=== PATIENT | male | born 1945 | race Caucasian/White ===

== ENCOUNTER → 2020-08-23 | Outpatient (CLI) | payer MEDICARE, BC, OTHER ==
[~2020-08-23] MED LIST: ALEV220T22 PO; DUTA1CAP2 PO; FAMO40TA3 PO; FLOM0.4C39 PO; GNP1000T11 PO; HYDR12CA PO; LOSA25TA14 PO; PRAV20TA2 PO; VALI5TAB PO; VITA50005 PO
== END ==
LOC: M LABSMTC 13:25
PROVIDERS: ATTEND Anesthesiology
DX: Z01.812 Encounter for preprocedural laboratory examination (principal); Z20.828 Contact with and (suspected) exposure to other viral communicable diseases

== ENCOUNTER 2020-08-28 06:17 | Inpatient (IN) | payer MEDICARE, BC, OTHER ==
[~2020-08-28] VITALS: Ht 165.1 cm; Wt 81.1 kg
[2020-08-28] MEDS ORDERED: ceFAZolin 2 GM/D5W 50 ML IV BAG (J0690 PER 500MG) As Ordered ONE (06:53)
[2020-08-28] MEDS ORDERED: fentaNYL 100 MCG/2 ML INJECTION (J3010) IV PRN ×2 (07:01)
[2020-08-28] MEDS ORDERED: MIDAZOLAM INJ 2MG/2ML VIAL (J2250 PER 1MG) IV PRN ×2 (07:01)
[2020-08-28] MEDS ORDERED: HYDROmorphone HCL 2 MG/ML 1ML VIAL (J1170) As Ordered ONE (07:13)
[2020-08-28] MEDS ORDERED: fentaNYL 100 MCG/2 ML INJECTION (J3010) As Ordered ONE ×2 (07:13→07:19)
[2020-08-28] MEDS ORDERED: dexameTHASONE 4 MG/ML 1ML VIAL (J1100 PER 1MG) As Ordered ONE (07:14)
[2020-08-28] MEDS ORDERED: ROCURONIUM BROMIDE 50 MG/5 ML VIAL As Ordered ONE (07:14)
[2020-08-28] MEDS ORDERED: MIDAZOLAM INJ 2MG/2ML VIAL (J2250 PER 1MG) As Ordered ONE ×2 (07:14→07:19)
[2020-08-28] MEDS ORDERED: LIDOCAINE 2% 100MG/5ML SDV (FOR ANES.) As Ordered ONE (07:14)
[2020-08-28] MEDS ORDERED: ONDANSETRON 4MG/2ML VIAL As Ordered ONE (07:14)
[2020-08-28] MEDS ORDERED: propofoL 200 MG/20 ML VIAL As Ordered ONE (07:14)
[2020-08-28] MEDS ORDERED: dexameTHASONE 10MG/1ML VIAL PRES.FREE (J1100 PER 1MG) As Ordered ONE (07:19)
[2020-08-28] MEDS ORDERED: ROPIvacaine 0.5% 30ML INJECTION (J2795 PER 1MG) As Ordered ONE ×2 (07:19→07:20)
[2020-08-28] MEDS ORDERED: EPINEPHrine INJ 1 MG/ML 1ML AMP As Ordered ONE (07:20)
[2020-08-28] MEDS ORDERED: LIDOCAINE 1% MDV 20ML VIAL As Ordered ONE (07:20)
[2020-08-28] MEDS ORDERED: ROPIvacaine 0.5% 30ML INJECTION (J2795 PER 1MG) XX ONE ×2 (07:45→15:00)
[2020-08-28] MEDS ORDERED: dexameTHASONE 10MG/1ML VIAL PRES.FREE (J1100 PER 1MG) XX ONE ×2 (07:45→15:00)
[2020-08-28] MEDS ORDERED: LR 1,000 ML IV ONE (07:45)
[2020-08-28] MEDS ORDERED: ceFAZolin SOD 2 GM in IV 1 EA IV ONE (07:45)
[2020-08-28] MEDS ORDERED: EPINEPHrine INJ 1 MG/ML 1ML AMP XX ONE ×2 (07:45→15:00)
[2020-08-28] MEDS ORDERED: ACETAMINOPHEN 1000MG 100ML IV BTL (OFIRMEV) (J0131 PER 10MG) As Ordered ONE (08:11)
[2020-08-28] MEDS ORDERED: SUGAMMADEX SODIUM 500 MG/5 ML VIAL (BRIDION) As Ordered ONE (08:12)
[2020-08-28] MEDS ORDERED: ePHEDrine SULFATE 25 MG/5 ML(5MG/ML) SYRINGE As Ordered ONE (08:15)
[2020-08-28] MEDS ORDERED: PHENYLephrine HCL 500 MCG/5 ML (100MCG/ML) SYRINGE (J2370) As Ordered ONE (08:16)
--- NOTE | 2020-08-28 08:29 | ECGEPIP ---
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 Clincal correlation advised Electronically Signed on 08-28-2020 8:29:34 EST by Loki Christiansen
--- NOTE | 2020-08-28 11:41 | REP ---
INDICATION: RIGHT ANKLE FUSION. COMPARISON: None. TECHNIQUE: Intraoperative fluoroscopic imaging using portable C-arm technique FINDINGS: Images demonstrate the patient to be status post fixation/ankle fusion. Satisfactory alignment noted. Total fluoroscopic time 2 minutes 16 seconds. IMPRESSION: Status post right ankle fusion <Electronically signed by Emilio Grider > 08/28/20 [id number]
[2020-08-28] MEDS ORDERED: ONDANSETRON 4MG/2ML VIAL IV PRN (13:00)
[2020-08-28] MEDS ORDERED: MORPHINE 4 MG/ML 1ML VIAL/SYRINGE (J2270) IV PRN (13:00)
[2020-08-28] MEDS ORDERED: oxyCODONE 5MG TAB PO PRN ×2 (13:00)
[2020-08-28 14:16] VITALS: BP 130/65
[2020-08-28] MEDS: LR 1,000 ML IV SCH (14:18)
[2020-08-28 15:00] VITALS: BP 133/62
[2020-08-28] MEDS: ACETAMINOPHEN 500 MG TAB PO SCH (15:21)
[2020-08-28] MEDS: ceFAZolin SOD 2 GM in IV 1 EA IV SCH (15:21)
[2020-08-28] MEDS ORDERED: diazePAM 5MG TABLET PO PRN (15:30)
--- NOTE | 2020-08-28 15:38 | HPEPDOC ---
[facility] Medical History & Physical Date of Admission Aug 28, 2020 Date of Service: Aug 28, 2020 History and Physical Chief complaint: Presented to [facility] for elective orthopedic procedure History of present illness: Patient is a 74-year-old male who presented to [facility] for elective orthopedic procedure. He has received a right ankle fusion with orthopedic surgery. Hospitalist service was consulted for medical management. He was seen and examined post operatively. He notes that he has received medical clearance from his primary care provider Freddy Luis. Currently patient denies any headache, nausea, vomiting, chest pain, shortness breath, palpitations, abdominal pain, constipation, diarrhea, or urinary discomfort. He denies any recent fevers or chills. Reports that his appetite and weight have been relatively normal. Past Medical History: HTN DLP Anxiety BPH Vitamin D deficiency GERD Past Surgical History: Cataracts (2018) Tumor removed at nose Vasectomy (1973) Colonoscopy (2018) Allergies: See below Medications: See below Family History: - Reviewed on non-contributory Social History: - Denies the use of illicit drugs; patient reports very little alcohol use, has quit smoking 50 years ago but was a smoker of greater than 10 years - Denies recent travel or sick contacts - Lives with - Occupation; works at a [employer] contractor Review of Systems: 10 point review of systems complete, all negative otherwise stated in HPI Physical exam: - Vitals: BP [130/66], HR [78], RR [17], Sat [96%RA], Temp [98.4F] - General: Sitting up in bed, Speaking in full sentences, AAOx3 - HEENT: NC, AT, PERRLA - CVS: RRR, +S1S2 - Lungs: Fair air entry bilaterally, No appreciable wheezing / rales / rhonchi - Abdomen: Soft, Non-distended, Non-tender - Extremities: No lower extremity edema at Left leg, No calf tenderness, R foot / leg in dressing - Neuro: No focal motor or sensory deficit - Skin: No visible rashes Labs: See below Imaging: See below EKG: See below Assessment and Plan: Elective right ankle fusion (POD#0) - Patient presented to [facility] for elective orthopedic procedure - Has received outpatient medical clearance from his primary care provider, Dr. Freddy Luis - Pain control, anticoagulation and physical therapy at the direction of orthopedic surgery HTN - Blood pressure is well-controlled - c/w HCTZ and Losartan with holding parameters DLP - c/w Pravastatin BPH - c/w Dutasteride and Tamsulosin Anxiety - c/w Diazepam PRN Vitamin D deficiency - Will resume supplementation as an outpatient GERD / Hiatal Hernia - c/w Famotidine DVT prophylaxis - As per orthopedic surgery Vital Signs Vital Signs Date Time Temp Pulse Resp B/P (MAP) Pulse Ox O2 Delivery O2 Flow Rate FiO2 08/28/20 14:16 98.4 78 17 130/65 (86) 96 Room Air 08/28/20 12:40 3 Home Medications Scheduled Dutasteride (Dutasteride) 0.5 Mg Capsule, 0.5 MG PO DAILY Ergocalciferol (Vitamin D2) (Vitamin D2) 50,000 Units Cap, 50,000 UNITS PO Q2WK Famotidine (Famotidine) 40 Mg Tablet, 40 MG PO QHS Glucosamine Sulfate Dipot Chlr (Glucosamine) 1,000 Mg Tablet, 2 TAB PO DAILY with turmeric Hydrochlorothiazide (Hydrochlorothiazide) 12.5 Mg Capsule, 12.5 MG PO DAILY Losartan Potassium (Losartan Potassium) 25 Mg Tablet, 12.5 MG PO DAILY Naproxen Sodium (Aleve) 220 Mg Tablet, 220 MG PO DAILY Pravastatin Sodium (Pravastatin Sodium) 20 Mg Tablet, 20 MG PO QPM Tamsulosin HCl (Flomax) 0.4 Mg Capsule, 0.4 MG PO DAILY Scheduled PRN Diazepam (Valium) 5 Mg Tablet, 5 MG PO PRN PRN for ANXIETY/AGITATION Allergies Coded Allergies: No Known Allergies (Unverified , 08/28/20) LUDWIG DE LA GARZA MD Aug 28, 2020 15:38
[2020-08-28] MEDS ORDERED: PILL CUTTER 1 EACH XX PRN (15:45)
[2020-08-28 16:00] VITALS: BP 131/66
--- NOTE | 2020-08-28 16:22 | RO ---
OPERATIVE NOTE DATE OF OPERATION: 08/28/2020 PREOPERATIVE DIAGNOSIS: Right ankle osteoarthritis. POSTOPERATIVE DIAGNOSIS: Right ankle osteoarthritis. PROCEDURES: 1. Right ankle arthrodesis. 2. Right proximal tibia bone graft. SURGEON: Scarlett Shannon M.D. ROCKET MOTOR MECHANIC: FAITH Womack. ANESTHESIA: General endotracheal with popliteal nerve block. ESTIMATED BLOOD LOSS: 100 mL. COMPLICATIONS: None. CONDITION: Stable to recovery. INDICATIONS FOR PROCEDURE: Otto Yanes is a 74-year-old male with longstanding pain from tibiotalar joint arthritis. He has failed conservative measures. Risks and benefits of surgery were discussed with him in detail and include, but are not limited to infection, damage to arteries and blood vessels, continued pain and stiffness, and the need for additional procedures. Informed consent was obtained in the office. DESCRIPTION OF PROCEDURE: The patient was met in the preoperative holding area where the right lower extremity was marked as the correct operative side. He was taken to the operating room and placed in the supine position on the operating room table. Bony prominences were well-padded. A Davis catheter was placed and taken out at the end of the case. He was given antibiotics within 60 minutes prior to incision. The right lower extremity was prepped and draped in the normal sterile fashion after a well-padded tourniquet was applied. An official time-out was held where the correct patient, operative side, and operative procedure were verified. An incision was made over the anterior aspect of the ankle. The superficial peroneal nerve was retracted. The retinaculum was incised. The EHL was retracted laterally and the tibialis anterior was retracted medially. The neurovascular bundle was identified and teased laterally with careful blunt dissection. Any crossing vessels were coagulated. The ankle joint was approach and capsule was incised. There was significant arthritis throughout the tibiotalar joint with very little remaining cartilage on the lateral aspect of the joint. There was bone loss of the tibial plafond medially. Copious irrigation was performed. I then carefully prepared the joint using a series of curettes, lambotte osteotomes, and all cartilage was removed. I had gained access to the joint with a lamina frontload driver. I then drilled the joint using a 2-0 drill. This was further fishtailed using a lambotte osteotome. There was good preparation of the joint. At this point, attention was turned to the lateral aspect of the leg. Gerdy's tubercle was identified using x-ray. I made an incision over Gerdy's tubercle and incised the anterior compartment. A small window was removed form the lateral tibial at the region of Gerdy's tubercle and I obtained bone graft from this region. At the end of the case, this area was irrigated and the anterior compartment was closed with 0-Vicryl. The skin was closed with 3-0 Vicryl and 3-0 nylon. The bone graft was then distributed throughout the tibiotalar joint. I used extra cancellous chips in the area of the defect in the medial tibial plafond. The joint was then reduced out of varus and compressed. It was pinned in place using two 2-0 K-wire. Reduction was confirmed on AP, oblique, and lateral fluoroscopy with the large C-arm. Following this, I placed a 6.7 mm lag screw, which had good bite. I then selected an Arthrex anterior fusion plate. It was secured distally with locking screws and a combination of locking and nonlocking screws proximally. A homerun screw was used and the eccentric screw through the plate was also used to gain further compression across the joint. I had burred down a small amount to allow for the plate to fit better. At this point, any remaining gaps were filled with bone graft; however, there was quite good compression seen on AP, lateral, and oblique views. The tourniquet had been let down. A drain was placed. The capsule was closed. I was unable to close the retinaculum due to swelling and a defect of the retinaculum near the joint. The soft tissues were closed with 3-0 Vicryl and the skin was closed with 3-0 nylon. A sterile dressing was applied. The patient was placed into a well-padded splint. He was extubated and transferred to the recovery room in stable condition. PLAN: The patient will be nonweightbearing for two to three months depending on the degree of fusion seen on his x-rays. He will be admitted to the hospital overnight. He will be on aspirin for DVT prophylaxis.
[2020-08-28 17:00] VITALS: BP 138/65
[2020-08-28] MEDS ORDERED: LOSARTAN 25 MG TAB PO SCH (21:00)
[2020-08-28] MEDS ORDERED: FAMOTIDINE 20 MG TAB PO SCH (21:00)
[2020-08-28] MEDS ORDERED: hydroCHLOROthiazide 12.5 MG CAPSULE PO SCH (21:00)
[2020-08-28] MEDS ORDERED: PRAVASTATIN 20 MG TAB PO SCH (21:00)
[2020-08-28 22:00] VITALS: BP 119/62
[2020-08-29] MEDS: LR 1,000 ML IV SCH (00:07)
[2020-08-29] MEDS: ceFAZolin SOD 2 GM in IV 1 EA IV SCH (00:25)
[2020-08-29] MEDS: ACETAMINOPHEN 500 MG TAB PO SCH ×2 (00:26→07:54)
[2020-08-29 02:00] VITALS: BP 120/62
[2020-08-29 06:00] VITALS: BP 111/57
[2020-08-29] MEDS ORDERED: OXYC-517 PO (06:52)
[2020-08-29] MEDS ORDERED: ECOT81TA5 PO (06:56)
[2020-08-29 07:31] LABS: BASO % 0.1 % (0.0-1.0); EOS % 0.3 % (0.0-3.0); HEMATOCRIT 37.5 % (42.0-52.0); HEMOGLOBIN 12.1 g/dl (13.5-17.5); LYMPH # 1.4 10^3/uL (1.5-5.0); LYMPH % 12.2 % (24.0-44.0); MEAN CORPUSCULAR HEMOGLOBIN 29.3 pg (27.0-33.0); MEAN CORPUSCULAR HGB CONC 32.3 g/dl (32.0-36.5); MEAN CORPUSCULAR VOLUME 90.8 fl (80.0-96.0); MONO # 0.9 10^3/uL (0.0-0.8); MONO % 7.7 % (0.0-5.0); NEUTROPHILS # 9.1 10^3/uL (1.5-8.5); NEUTROPHILS % 79.1 % (36.0-66.0); PLATELET COUNT, AUTOMATED 116 10^3/uL (150-450); RED BLOOD COUNT 4.13 10^6/uL (4.30-6.10); WHITE BLOOD COUNT 11.6 10^3/uL (4.0-10.0)
[2020-08-29 07:53] LABS: BLOOD UREA NITROGEN 17 MG/DL (7-18); CALCIUM LEVEL 8.9 MG/DL (8.8-10.2); CARBON DIOXIDE LEVEL 29 MEQ/L (21-32); CHLORIDE LEVEL 107 MEQ/L (98-107); CREATININE FOR GFR 1.11 MG/DL (0.70-1.30); GLOMERULAR FILTRATION RATE > 60.0 (>42); GLUCOSE, FASTING 109 MG/DL (70-100); POTASSIUM SERUM 3.7 MEQ/L (3.5-5.1); SODIUM LEVEL 142 MEQ/L (136-145)
[2020-08-29] MEDS ORDERED: ASPIRIN 81 MG ENTERIC TAB PO SCH (09:00)
[2020-08-29] MEDS ORDERED: DUTASTERIDE 0.5 MG CAP (AVODART) PO SCH (09:00)
[2020-08-29] MEDS ORDERED: TAMSULOSIN 0.4 MG CAP PO SCH (09:00)
--- NOTE | 2020-08-29 12:42 | IPNPDOC ---
Text Note Date of Service The patient was seen on 08/29/20. NOTE Subjective: -No acute events -Doing well postop Objective: Vitals: HDS, afebrile, stable on room air General: NAD HEENT: NCAT, PERRLA, EOMI, MMM CVS: RRR, +S1S2, no mrg Lungs: Fair air entry bilaterally, No appreciable wheezing, rales or rhonchi Abdomen: Soft, Non-distended, Non-tender Extremities: R foot/ankle with c/d/i cast/dressing. LLE wnl Neuro: No focal motor or sensory deficit Skin: No visible rashes Labs: Reviewed Assessment: 74-year-old M who presented to [facility] for elective right ankle fusion with orthopedic surgery and internal medicine was consulted for medical management. Elective right ankle fusion (POD#1) - Pain control, anticoagulation and physical therapy at the direction of orthopedic surgery HTN - Blood pressure is well-controlled - c/w HCTZ and Losartan with holding parameters DLP - c/w Pravastatin BPH - c/w Dutasteride and Tamsulosin Anxiety - c/w Diazepam PRN Vitamin D deficiency - Will resume supplementation as an outpatient GERD / Hiatal Hernia - c/w Famotidine DVT prophylaxis - As per orthopedic surgery Dispo: medically stable. Disposition per surgery team. VS,Coleman, I+O VSColeman, I+O Laboratory Tests 08/29/20 06:56 Vital Signs Date Time Temp Pulse Resp B/P (MAP) Pulse Ox O2 Delivery O2 Flow Rate FiO2 08/29/20 06:00 97.7 55 18 111/57 (75) 94 Room Air 08/28/20 12:40 3 I&O- Last 24 Hours up to 6 AM 08/29/20 06:00 Intake Total 3610 ml Output Total 2350 ml Balance 1260 ml TIMOTHY HADLEY MD Aug 29, 2020 09:08
== END 2020-08-29 12:10 | disposition home or self-care (01) | DRG 494 ==
LOC: M OR 06:17 → M MS5PR 14:11
PROVIDERS: ADMIT Orthopaedic Surgery; ATTEND Orthopaedic Surgery
PROC: 0SGF07Z Fusion of Right Ankle Joint with Autologous Tissue Substitute, Open Approach (ICD-10-PCS; principal; 2020-08-28 07:30)
DX: M19.071 Primary osteoarthritis, right ankle and foot (principal); I10 Essential (primary) hypertension; E78.5 Hyperlipidemia, unspecified; F41.9 Anxiety disorder, unspecified; N40.0 Benign prostatic hyperplasia without lower urinary tract symptoms; E55.9 Vitamin D deficiency, unspecified; K21.9 Gastro-esophageal reflux disease without esophagitis; Z98.49 Cataract extraction status, unspecified eye; Z87.891 Personal history of nicotine dependence; Z79.1 Long term (current) use of non-steroidal anti-inflammatories (NSAID); Z79.899 Other long term (current) drug therapy